=== PATIENT | male | born 1990 | race Caucasian/White ===

== ENCOUNTER 2017-05-20 23:13 | Emergency (ER) | payer BC ==
[2017-05-20 23:29] VITALS: BMI 27.9
--- NOTE | 2017-05-20 23:31 | ED PDOC ---
HPI: General Adult Chief Complaint (Provider): Left ear bleed History Per: Patient History/Exam Limitations: no limitations Onset/Duration Of Symptoms: Hrs Have you had recent travel within the past 21 days to any of the following countries: [place], [place], [place] or [place]?: No Current Symptoms Are (Timing): Gone Now Severity: Mild Pain Scale Rating Of: 0 Additional History Per: Patient <Donita Watson - Last Filed: 05/20/17 23:48> <Eddie Romano - Last Filed: 05/21/17 00:03> Time Seen by Provider: 05/20/17 23:35 Additional Complaint(s): 26 y/o male with no significant medical history presenting to ED with cc of left ear bleeding that has since resolved. Pt reports he was using Q-tips to clear out his ears and noticed some blood, which has since resolved. Denies any associated fever, chills, ear pain or vertigo. No other complaints otherwise ( Donita Watson) Supervising Attending Note <Donita Watson - Last Filed: 05/20/17 23:48> - Supervising Attending Note The Documented history was done by the: Physician Shellfish Shucker The documented physical exam was done by the: Physician Shellfish Shucker The documented procedures were done by the: Physician Shellfish Shucker - Attestation: I have personally seen and examined this patient.: Yes I have fully participated in the care of the patient.: Yes I have reviewed all pertinent clinical information, including history, physical exam and plan: Yes <Eddie Romano - Last Filed: 05/21/17 00:03> - Notes: Notes:: L ear bleeding post q-tip use. No pain. (Eddie Romano) Past Medical History - Medical History PMH: No Chronic Diseases - Family History Family History: States: No Known Family Hx <Donita Watson - Last Filed: 05/20/17 23:48> <Eddie Romano - Last Filed: 05/21/17 00:03> Vital Signs: Last Vital Signs Temp 98.0 F 05/20/17 23:29 Pulse 64 05/20/17 23:29 Resp 18 05/20/17 23:29 BP 118/60 05/20/17 23:29 Pulse Ox 98 05/20/17 23:29 - Home Medications Home Medications: Ambulatory Orders Medication Instructions Recorded Amoxicillin/Clavulanate [Augmentin 1 tab PO Q12 #14 tab 05/20/17 875 MG-125 MG] - Allergies Allergies/Adverse Reactions: Allergies Allergy/AdvReac Type Severity Reaction Status Date / Time pear Allergy RASH Verified 05/20/17 23:29 Review of Systems ROS Statement: Except As Marked, All Systems Reviewed And Found Negative Constitutional: Negative for: Fever, Chills ENT: Positive for: Other (Left ear bleeding ) Cardiovascular: Negative for: Chest Pain, Palpitations Respiratory: Negative for: Cough, Shortness of Breath Gastrointestinal: Negative for: Nausea, Vomiting, Abdominal Pain Genitourinary Male: Negative for: Dysuria, Frequency <Donita Watson - Last Filed: 05/20/17 23:48> Physical Exam - Physical Exam Appears: Positive for: Well, No Acute Distress Head Exam: Positive for: NORMOCEPHALIC Skin: Positive for: Normal Color, Warm Eye Exam: Positive for: Normal appearance, EOMI, PERRL ENT: Positive for: TM Is/Are (left ear has some blood right before tube, no signs of perforations) Cardiovascular/Chest: Positive for: Regular Rate, Rhythm, Chest Non Tender. Negative for: JVD, Murmur Respiratory: Positive for: Normal Breath Sounds. Negative for: Decreased Breath Sounds, Accessory Muscle Use, Wheezing Gastrointestinal/Abdominal: Positive for: Normal Exam, Bowel Sounds, Soft. Negative for: Tenderness Extremity: Positive for: Normal ROM. Negative for: Tenderness, Pedal Edema Neurologic/Psych: Positive for: Alert, clinical exercise specialist II-XII, Oriented <Donita Watson - Last Filed: 05/20/17 23:48> - Physical Exam ENT: Positive for: TM Is/Are (left ear has some blood on base of tube before TM , no signs of perforations) <Eddie Romano - Last Filed: 05/21/17 00:03> <Donita Watson - Last Filed: 05/20/17 23:48> <Eddie Romano - Last Filed: 05/21/17 00:03> - Progress ED Course And Treament: PE does not show any evidence of perforation Will discharge with Augmentin and ENT referral (Donita Watson) 2359: Stable. AAOx3. Fu with ENT. Will put on antibiotics. (Eddie Romano) Disposition - Patient ED Disposition Is Patient to be Admitted: No - Disposition Disposition: Routine/Home Disposition Time: 11:50 <Donita Watson - Last Filed: 05/20/17 23:48> - Patient ED Disposition Is Patient to be Admitted: No - Disposition Disposition: Routine/Home <Eddie Romano - Last Filed: 05/21/17 00:03> - Clinical Impression Clinical Impression: Trauma to ear - Disposition Referrals: Sahil An MD [Staff Provider] - 05/22/17 Condition: STABLE Prescriptions: Amoxicillin/Clavulanate [Augmentin 875 MG-125 MG] 1 tab PO Q12 #14 tab Instructions: Earache (ED), Ear Foreign Body (ED) Forms: [employer] ([place]ese) Print Language: KINYARWANDA
[2017-05-20 23:32] VITALS: BP 118/60; PULSE 64; RESP 18; TEMP 98; O2SAT 98
== END 2017-05-21 00:09 | disposition home or self-care (01) ==
LOC: H.ER 23:13
DX: S09.91XA Unspecified injury of ear, initial encounter (principal); X58.XXXA Exposure to other specified factors, initial encounter; Y93.89 Activity, other specified; Y92.89 Other specified places as the place of occurrence of the external cause

== ENCOUNTER 2017-12-13 20:04 | Emergency (ER) | payer BC, OTHER ==
[2017-12-13 20:04] VITALS: BMI 27.9
[2017-12-13 20:16] VITALS: BP 128/71; PULSE 73; RESP 14; TEMP 98.6; O2SAT 99
[2017-12-13 21:21] LABS: BASO % 0.2 % (0.0-2.0); EOS # 0.1 K/uL (0.0-0.7); EOS % 0.8 % (0.0-4.0); HEMOGLOBIN 15.6 g/dL (12.0-18.0); LYMPH # 2.1 K/uL (1.0-4.3); LYMPH % 28.7 % (20.0-40.0); MEAN CELL VOLUME 85.4 fl (80.0-94.0); MEAN CORPUSCULAR HEMOGLOBIN 29.1 pg (27.0-31.0); MEAN PLATELET VOLUME 9.3 fl (7.2-11.7); MONO # 0.4 K/uL (0.0-0.8); NEUT # 4.7 K/uL (1.8-7.0); NEUT % 64.3 % (50.0-75.0); NRBC % 0.6 % (0.0-0.0); RBC 5.37 Mil/uL (4.40-5.90); WHITE BLOOD COUNT 7.3 K/uL (4.8-10.8)
[2017-12-13 21:35] LABS: ALB/GLOB RATIO 1.3 (1.0-2.1); ALBUMIN 4.5 g/dL (3.5-5.0); ALT/SGPT 44 U/L (21-72); AST/SGOT 32 U/L (17-59); BLOOD UREA NITROGEN 19 mg/dl (9-20); CALCIUM 9.8 mg/dL (8.4-10.2); GFR AFRICAN-AMERICAN > 60; GFR NON-AFRICAN AMERICAN > 60
--- NOTE | 2017-12-13 21:48 | ED PDOC ---
HPI: Male Pain Time Seen by Provider: 12/13/17 20:32 Chief Complaint (Nursing): Male Genitourinary Chief Complaint (Provider): Male Genitourinary History Per: Patient History/Exam Limitations: no limitations Onset/Duration Of Symptoms: Days (x6) Current Symptoms Are (Timing): Intermittent Episodes Severity: Mild Pain Scale Rating Of: 4 Quality Of Discomfort: Aching Associated Symptoms: denies: Fever, Chills, Nausea, Vomiting, Diarrhea, Back Pain, Chest Pain, Urinary Symptoms Alleviating Factors: Other (laying down) Additional Complaint(s): 27 y/o male with no significant past medical history, presents to the ED complaining of bilateral testicular pain since 12/08/16 approximately 2-3 hours after having sex. Patient reports that pain has been switching on and off between testicles and the groin, but originally started in the left testicle. At present, patient complains of right sided testicular swelling and left sided testicular pain. States he was seen at [facility] just prior to arrival and had a urinalysis, which showed no abnormalities. Patient states he was sent to the ED from the urgent care to receive a testicular US. Denies taking any medication for symptoms. Denies any prior episode of similar symptoms. Also denies fever, abdominal pain, nausea, vomiting, diarrhea, penile discharge, incontinence, hematuria, urinary frequency/urgency, back pain, flank pain, or fever. Denies any history of STDs. Past Medical History Reviewed: Historical Data, Nursing Documentation, Vital Signs Vital Signs: Last Vital Signs Temp 98.6 F 12/13/17 20:13 Pulse 73 12/13/17 20:13 Resp 14 12/13/17 20:13 BP 128/71 12/13/17 20:13 Pulse Ox 99 12/13/17 20:13 - Medical History PMH: No Chronic Diseases - Surgical History Surgical History: No Surg Hx - Family History Family History: States: Unknown Family Hx - Social History Current smoker - smoking cessation education provided: No Alcohol: Social Drugs: Denies - Home Medications Home Medications: Ambulatory Orders Medication Instructions Recorded Amoxicillin/Clavulanate [Augmentin 1 tab PO Q12 #14 tab 05/20/17 875 MG-125 MG] - Allergies Allergies/Adverse Reactions: Allergies Allergy/AdvReac Type Severity Reaction Status Date / Time pear Allergy RASH Verified 05/20/17 23:29 Review of Systems ROS Statement: Except As Marked, All Systems Reviewed And Found Negative Constitutional: Negative for: Fever, Chills, Weakness Cardiovascular: Negative for: Chest Pain Respiratory: Negative for: Cough Gastrointestinal: Negative for: Nausea, Vomiting, Abdominal Pain, Diarrhea Genitourinary Male: Positive for: Scrotal Pain. Negative for: Dysuria, Frequency, Incontinence, Hematuria, Penile Discharge, Rash Skin: Negative for: Rash Physical Exam - Reviewed Nursing Documentation Reviewed: Yes Vital Signs Reviewed: Yes - Physical Exam Appears: Positive for: Well, Non-toxic, No Acute Distress Head Exam: Positive for: ATRAUMATIC, NORMOCEPHALIC Skin: Positive for: Normal Color, Warm, Dry. Negative for: Rash Eye Exam: Positive for: EOMI, Normal appearance, PERRL Neck: Positive for: Normal, Painless ROM, Supple Cardiovascular/Chest: Positive for: Regular Rate, Rhythm. Negative for: Murmur , Bradycardia, Tachycardia Respiratory: Positive for: Normal Breath Sounds. Negative for: Decreased Breath Sounds, Accessory Muscle Use, Respiratory Distress Gastrointestinal/Abdominal: Positive for: Bowel Sounds (active x4), Soft. Negative for: Tenderness, Organomegaly, Mass, Distended, Guarding, Rebound Male Genital Exam: Positive for: normal genitalia (circumcised male), testicular tenderness (L) (mild), other ((-) swelling to scrotum. Mary CAMPOS present as contractor general engineering). Negative for: erythema, hernia mass, inguinal tenderness , lesions, urethral discharge Back: Positive for: Normal Inspection. Negative for: L CVA Tenderness, R CVA Tenderness, Vertebral Tenderness Extremity: Positive for: Normal ROM. Negative for: Deformity Neurologic/Psych: Positive for: Alert, Oriented (x3), Gait (steady). Negative for: Motor/Sensory Deficits - Laboratory Results Result Diagrams: 12/13/17 21:16 12/13/17 21:16 - ECG O2 Sat by Pulse Oximetry: 99 (RA) Pulse Ox Interpretation: Normal Medical Decision Making Medical Decision Making: Time: 20:56 Initial Impression: Acute testicular pain Initial Plan: --CMP --CBC w/ differential --Toradol 30 mg IVP --IV Insertion --Urinalysis --US Testes Duplex --Reevaluation 2145 Labs reviewed and grossly unremarkable. Patient returned from U/S without incident. On re-evaluation, patient reports improvement of symptoms, and continues to deny any abdominal pain, nausea, or vomiting. On exam, patient remains AAOx3, in no acute distress. Lungs clear to auscultation, cardiac RRR, abdomen soft, non-tender, repeat neuro exam shows no focal findings. 2230 EXAM: US Scrotum EXAM DATE/TIME: 12/13/2017 8:56 PM CLINICAL HISTORY: 27 years old, male; Pain; Scrotum pain; Additional info: B/l testicular pain, right testicular swelling TECHNIQUE: Real-time ultrasound of the scrotum with color Doppler and image documentation. COMPARISON: There are no prior studies for comparison. FINDINGS: Right: Right testicle measures approximately 4.2 x 1.9 x 2.7 cm.There is expected intratesticular blood flow. There are no testicular masses. There is no hydrocele. Right epididymal head measures approximately 8 x 8 mm. There are small epididymal head cysts. Left: Left testicle measures approximately 4.2 x 1.9 x 2.7 cm.There is expected intratesticular blood flow. There are no testicular masses. Left epididymal head measures approximately 9 x 8 mm. There are small epididymal head cysts. IMPRESSION: No torsion; small epididymal head cysts Thank you for allowing us to participate in the care of your patient. Dictated and Authenticated by: Carissa Milan MD 12/13/2017 10:22 PM Eastern Time ([place] & [place]) 2250 Diagnostic results d/w the patient in great detail. Diagnosis of acute testicular pain, groin pain d/w the patient. Based on history, exam and diagnostic results, plan will be for outpatient follow up. Patient instructed to follow-up with referral provided (urology Dr Joseph) / the clinic in 1-2 days without fail. Return to the emergency room at any time for any new or worsening symptoms. Patient states he fully agrees with and understands discharge instructions. States that he agrees with the plan and disposition. Verbalized and repeated discharge instructions and plan. I have given the patient opportunity to ask any additional questions. Scribe Attestation: Documented by Sam Tafoya, acting as a scribe for Yana Juarez PA-C. Provider Scribe Attestation: All medical record entries made by the Scribe were at my direction and personally dictated by me. I have reviewed the chart and agree that the record accurately reflects my personal performance of the history, physical exam, medical decision making, and the department course for this patient. I have also personally directed, reviewed, and agree with the discharge instructions and disposition. Disposition - Clinical Impression Clinical Impression: Testicular pain, unspecified, Bilateral groin pain - Patient ED Disposition Is Patient to be Admitted: No Counseled Patient/Family Regarding: Studies Performed, Diagnosis, Need For Followup - Disposition Referrals: Leonie Joseph MD [Medical Doctor] - [facility] [Outside] Disposition: Routine/Home Disposition Time: 22:57 Condition: STABLE Instructions: Groin Strain, Testicular Injury Forms: [employer] (Syrian) Print Language: HEBREW - POA Present On Arrival: None Results - Lab Results Lab Results: 12/13/17 12/13/17 21:16 21:16 WBC 7.3 RBC 5.37 Hgb 15.6 Hct 45.8 MCV 85.4 MCH 29.1 MCHC 34.0 RDW 13.0 Plt Count 157 MPV 9.3 Neut % (Auto) 64.3 Lymph % (Auto) 28.7 [place]aver % (Auto) 6.0 Eos % (Auto) 0.8 Baso % (Auto) 0.2 Neut # (Auto) 4.7 Lymph # (Auto) 2.1 [place]aver # (Auto) 0.4 Eos # (Auto) 0.1 Baso # (Auto) 0.0 Sodium 143 Potassium 3.8 Chloride 101 Carbon Dioxide 24 Anion Gap 22 H BUN 19 Creatinine 0.8 Est GFR ( Amer) > 60 Est GFR (Non-Af Amer) > 60 Random Glucose 89 Calcium 9.8 Total Bilirubin 0.6 AST 32 ALT 44 Alkaline Phosphatase 70 Total Protein 8.0 Albumin 4.5 Globulin 3.4 Albumin/Globulin Ratio 1.3
--- NOTE | 2017-12-13 22:22 | US ---
EXAM: US Scrotum EXAM DATE/TIME: 12/13/2017 8:56 PM CLINICAL HISTORY: 27 years old, male; Pain; Scrotum pain; Additional info: B/l testicular pain, right testicular swelling TECHNIQUE: Real-time ultrasound of the scrotum with color Doppler and image documentation. COMPARISON: There are no prior studies for comparison. FINDINGS: Right: Right testicle measures approximately 4.2 x 1.9 x 2.7 cm.There is expected intratesticular blood flow. There are no testicular masses. There is no hydrocele. Right epididymal head measures approximately 8 x 8 mm. There are small epididymal head cysts. Left: Left testicle measures approximately 4.2 x 1.9 x 2.7 cm.There is expected intratesticular blood flow. There are no testicular masses. Left epididymal head measures approximately 9 x 8 mm. There are small epididymal head cysts. IMPRESSION: No torsion; small epididymal head cysts
[2017-12-13 23:20] LABS: URINE BILIRUBIN NEGATIVE (NEGATIVE); URINE BLOOD NEGATIVE (NEGATIVE); URINE CLARITY SLIGHTY-CLOUDY (Clear); URINE COLOR YELLOW (YELLOW); URINE GLUCOSE (UA) NEG (Normal); URINE LEUKOCYTE ESTERASE NEG Leu/uL (Negative); URINE PROTEIN NEGATIVE (NEGATIVE); URINE UROBILINOGEN 0.2-1.0 mg/dL (0.2-1.0)
== END 2017-12-13 23:10 | disposition home or self-care (01) ==
LOC: H.ER 20:04
DX: N50.811 Right testicular pain (principal); N50.812 Left testicular pain; N50.82 Scrotal pain
CPT/HCPCS: 80053; 81003; 85025; 93975; 96374; 99283; J1885